=== PATIENT | female | born 1995 | race Caucasian/White ===

== ENCOUNTER → 2017-12-02 | Outpatient (CLI) | payer OTHER ==
[2017-12-02 12:15] LABS: Glucose 3 Hour, Gest 117 mg/dL
== END | disposition home or self-care (01) ==
LOC: LABWHC1 08:15
PROVIDERS: ATTEND Obstetrics & Gynecology
DX: R73.02 Impaired glucose tolerance (oral) (principal)
CPT/HCPCS: 36415; 82951; 82952

== ENCOUNTER 2018-01-01 06:41 | Inpatient (IN) | payer OTHER ==
[2018-01-01] MEDS ORDERED: OXYTOCIN 10 UNIT/ML 1 ML VIAL IM PRN (07:00)
[2018-01-01] MEDS ORDERED: TERBUTALINE 1 MG/ML VIAL SQ PRN (07:00)
[2018-01-01] MEDS ORDERED: LIDOCAINE 1% (PF) 10 MG/ML (30 ML SDV) SQ PRN (07:00)
[2018-01-01] MEDS ORDERED: CARBOPROST TROMETHAMINE 250 MCG/ML 1 ML AMP IM PRN (07:00)
[2018-01-01] MEDS ORDERED: PENICILLIN G POTASSIUM 5,000,000 UNIT in DEXTROSE 5% IN WATER 100 ML IVPB STA ×2 (07:00)
[2018-01-01] MEDS ORDERED: METHYLERGONOVINE 0.2 MG/ML 1 ML AMP IM PRN (07:00)
[2018-01-01] MEDS ORDERED: OXYTOCIN 20 UNITS/1000 ML NS 1,000 ML IV SCH ×2 (07:15→08:30)
[2018-01-01 07:28] LABS: Basophils % (A) 0 %; Eosinophils # (A) 0.1 k/uL (0-0.7); Eosinophils % (A) 1 %; HCT 33.7 % (34.0-46.0); HGB 11.2 gm/dL (11.4-16.0); Lymphocytes # (A) 1.2 k/uL (1.0-4.8); Lymphocytes % (A) 16 %; MCH 29.7 pg (25.0-35.0); MCHC 33.1 g/dL (31.0-37.0); MCV 89.7 fL (80.0-100.0); Mean Platelet Volume 8.4; Monocytes # (A) 0.4 k/uL (0-1.0); Monocytes % (A) 6 %; Neutrophils # (A) 6.1 k/uL (1.3-7.7); Neutrophils % (A) 76 %; Platelet Count 182 k/uL (150-450); RBC 3.76 m/uL (3.80-5.40)
[2018-01-01] MEDS: LACTATED RINGERS 1,000 ML IV SCH ×2 (07:39→21:31)
--- NOTE | 2018-01-01 08:01 | P.HPOB ---
History of Present Illness H&P Date: 01/01/18 Chief Complaint: Contractions This is a 22-year-old 6 para 20 32 woman who presents at approximately 36-6/7 weeks' gestation in spontaneous active labor. She has received her care in [facility]. She reports spontaneous onset of contractions at approximately 11: 30 PM. She presents at approximately 6:30 AM is found to be 6+ centimeters dilated and reginald every 4 minutes. She denies rupture of membranes or vaginal bleeding. She reports an uncomplicated . She believes she is blood type positive and group B strep negative. Her obstetric history is significant for 2 previous vaginal deliveries in 2013 and 2016 at 39 and 35 weeks respectively. She's had one voluntary termination of and 2 miscarriages. Review of Systems All systems: negative Past Medical History Past Medical History: No Reported History History of Any Multi-Drug Resistant Organisms: None Reported Past Surgical History: No Surgical Hx Reported Past Anesthesia/Blood Transfusion Reactions: No Reported Reaction Past Psychological History: No Psychological Hx Reported Smoking Status: Never smoker Past Alcohol Use History: None Reported Past Drug Use History: None Reported - Past Family History Mother Family Medical History: No Reported History Medications and Allergies Home Medications Medication Instructions Recorded Confirmed Type No Known Home Medications 11/17/15 01/01/18 History Allergies Allergy/AdvReac Type Severity Reaction Status Date / Time No Known Allergies Allergy Verified 01/01/18 06:54 Exam Vital Signs Temp Pulse Resp BP 01/01/18 06:54 97.0 F L 75 18 136/75 Intake and Output 12/31/17 01/01/18 01/01/18 22:59 06:59 14:59 Other: Weight 65.771 kg Targeted physical exam is performed. This is a visibly gravid, actively laboring female. Abdomen is nontender with palpable strong contractions. On pelvic examination the cervix is 6-7 cm dilated, 80% effaced and the vertex in the -2 station. Artificial rupture membranes is undertaken and clear fluid is noted. heart tones are reassuring by external monitoring and she is reginald every 3-4 minutes spontaneously. Results Result Diagrams: 01/01/18 07:05 Abnormal Lab Results - Last 24 Hours (Table) 01/01/18 Range/Units 07:05 RBC 3.76 L (3.80-5.40) m/uL Hgb 11.2 L (11.4-16.0) gm/dL Hct 33.7 L (34.0-46.0) % Assessment and Plan (1) Spontaneous onset of labor Current Visit: Yes Status: Acute Code(s): [id number] - SNOMED Code(s): 43778827 (2) 36 to 37 weeks gestation of Current Visit: Yes Status: Acute Code(s): NSI9632 - SNOMED Code(s): 748741225 Plan: 22-year-old 6 para 2032 woman admitted at 36-6/7 weeks gestation in spontaneous active labor. Group B strep unknown and therefore prophylactic antibiotics have been initiated. We'll obtain her record as soon as possible unlikely discontinue these once great group B strep negative status is confirmed. status is currently reassuring and I anticipate normal spontaneous vaginal delivery.
[2018-01-01] MEDS ORDERED: SIMETHICONE 80 MG CHEWABLE PO PRN (08:25)
[2018-01-01] MEDS ORDERED: ZOLPIDEM 5 MG TAB PO PRN (08:25)
[2018-01-01] MEDS ORDERED: HYDROCORTISONE 2.5% RECTAL CREAM 30 GM TUBE RECTAL PRN (08:25)
[2018-01-01] MEDS ORDERED: WITCH HAZEL 1 EACH MED..PAD TOPICAL PRN (08:25)
[2018-01-01] MEDS ORDERED: ACETAMINOPHEN TAB 325 MG TAB PO PRN (08:25)
[2018-01-01] MEDS ORDERED: BENZOCAINE/MENTHOL SPRAY 1 GM/SPRAY AEROSOL TOPICAL PRN (08:25)
[2018-01-01] MEDS ORDERED: diphenhydrAMINE 50 MG CAP PO PRN (08:25)
[2018-01-01] MEDS ORDERED: diphenhydrAMINE 50 MG/ML 1 ML VIAL IVP PRN ×2 (08:25)
[2018-01-01] MEDS ORDERED: LANOLIN CREAM 5 GM TUBE TOPICAL PRN (08:25)
[2018-01-01] MEDS ORDERED: diphenhydrAMINE 25 MG CAP PO PRN (08:25)
--- NOTE | 2018-01-01 08:25 | P.PROBDLV ---
Vaginal Delivery Note - . Vaginal Delivery Note: Findings: Male infant in the vertex left occiput anterior position. Nuchal cord 1. Apgars 8 at 1 minute and 9 at 5 minutes. Weight pending. Intact, three-vessel cord placenta. No perineal lacerations. EBL 100 mL's. Delivery summary: This is a 22-year-old 6 para 203 woman who presented at 36-6/7 weeks gestation having had care at an [facility] facility. Onset of painful contractions at approximately 11:45 PM. She presented approximately 6:30 AM at which time she was 6 cm dilated. She underwent artificial rupture of membranes and received group B strep unknown prophylactic antibiotics. She rapidly progressed to complete cervical dilation. She commenced pushing with excellent maternal effort. With she was repositioned, prepped and draped in the dorsal modified lithotomy position. The head then delivered from the left occiput anterior position. Nose and mouth were bulb suctioned on the perineum. Nuchal cord 1 was reduced. Anterior followed by the posterior shoulders were easily delivered. The rest the infant was delivered onto the field and the nose and mouth were further bulb suctioned. was placed on the maternal abdomen where the cord was clamped and cut. Apgars were 8 at 1 minute and 9 at 5 minutes. An intact, three-vessel cord placenta was delivered without difficulty. The vagina and cervix were inspected and no lacerations were noted. Uterus was massaged and was noted to be firm at the level of the umbilicus. The patient received Pitocin following the delivery of the placenta. Both mother and infant were doing well post delivery in the room.
[2018-01-01] MEDS: IBUPROFEN 600 MG TAB PO PRN ×2 (08:39→20:10)
[2018-01-01 08:52] VITALS: BMI 24.1
[2018-01-01] MEDS: PENICILLIN G POTASSIUM 2,500,000 UNIT in DEXTROSE 5% IN WATER 100 ML IVPB SCH ×6 (12:28→21:33)
[2018-01-01] MEDS: SENNOSIDES-DOCUSATE SODIUM 1 EACH TAB PO SCH (21:35)
[2018-01-02] MEDS: IBUPROFEN 600 MG TAB PO PRN ×3 (01:44→19:58)
[2018-01-02] MEDS: SENNOSIDES-DOCUSATE SODIUM 1 EACH TAB PO SCH ×2 (07:49→19:59)
[2018-01-02 08:52] LABS: Basophils % (A) 0 %; Eosinophils # (A) 0.1 k/uL (0-0.7); Eosinophils % (A) 1 %; HCT 33.4 % (34.0-46.0); HGB 10.9 gm/dL (11.4-16.0); Lymphocytes # (A) 1.2 k/uL (1.0-4.8); Lymphocytes % (A) 16 %; MCH 29.8 pg (25.0-35.0); MCHC 32.7 g/dL (31.0-37.0); MCV 91.1 fL (80.0-100.0); Mean Platelet Volume 8.3; Monocytes # (A) 0.4 k/uL (0-1.0); Monocytes % (A) 6 %; Neutrophils # (A) 5.4 k/uL (1.3-7.7); Neutrophils % (A) 74 %; Platelet Count 169 k/uL (150-450); RBC 3.67 m/uL (3.80-5.40); RDW 14.4 % (11.5-15.5); WBC 7.3 k/uL (3.8-10.6)
--- NOTE | 2018-01-02 12:51 | P.DS ---
Providers Date of admission: 01/01/18 06:58 Expected date of discharge: 01/02/18 Attending physician: Leisa Gutierrez - Discharge Diagnosis(es) (1) Spontaneous onset of labor Current Visit: Yes Status: Acute (2) 36 to 37 weeks gestation of Current Visit: Yes Status: Acute (3) Normal spontaneous vaginal delivery Current Visit: Yes Status: Acute (4) Nuchal cord Current Visit: Yes Status: Acute Hospital Course: This is a 22-year-old 6 now para 3023 woman who presented at 36-6/7 weeks' gestation in advanced active labor. She had her care at an [facility] facility. Following admission she underwent artificial rupture of membranes and clear fluid was noted. She went on to deliver a liveborn male infant over an intact perineum with a nuchal cord. Apgars were 8 at 1 minute and 9 at 5 minutes. Her course was unremarkable. By day #1 she was ambulating and voiding without difficulty, her lochia was decreasing , her pain was controlled with the ibuprofen and her vital signs were stable. She was therefore discharged home with routine instructions for care and follow-up. Procedures: Normal spontaneous vaginal delivery Patient Condition at Discharge: Good Plan - Discharge Summary New Discharge Prescriptions: No Action No Known Home Medications Discharge Medication List No Known Home Medications 11/17/15 [History] Activity/Diet/Wound Care/Special Instructions: Follow-up in the office in 6 weeks . Call with any concerning signs or symptoms including heavy vaginal bleeding, severe abdominal pain, fever greater than 101, swelling or redness of the lower extremities, foul vaginal discharge, or signs of depression. Nothing in the vagina for 6 weeks after delivery, specifically no intercourse. Discharge Disposition: HOME SELF-CARE
[2018-01-03 03:18] VITALS: BP 119/75; PULSE 58; RESP 18; TEMP 97.7
--- NOTE | 2018-01-03 08:33 | P.MSEPDOC ---
Presenting Problems - Arrival Data Date of Arrival on Unit: 01/01/18 Time of Arrival on Unit: 06:55 Mode of Transport: Wheelchair - Complaint OB-Reason for Admission/Chief Complaint: Possible Onset of Labor Comment: 12/31/17 2300 Medical History - Information : 6 Para: 2 Term: 1 : 1 Abortions: Spontaneous or Elective: 0 Number of Living Children: 2 - Gestational Age Gestational Age by JESSE (wks/days): 37 Weeks and 0 Days Review of Systems - Review of Systems Constitutional: No problems Breast: No problems ENT: No problems Cardiovascular: No problems Respiratory: No problems Gastrointestinal: No problems Genitourinary: No problems Musculoskeletal: No problems Neurological: No problems Skin: No problems Vital Signs - Temperature Temperature: 97.7 F Temperature Source: Axillary - Pulse Right Sitting Pulse Rate: 58 Pulse Assessment Method: Pulse Oximetry - Respirations Respiratory Rate: 18 Oxygen Delivery Method: Room Air O2 Sat by Pulse Oximetry: 100 - Blood Pressure Right Arm Blood Pressure: 119/75 Blood Pressure Mean: 89 Blood Pressure Source: Automatic Cuff Medical Screen Scoring (Pre) - Cervical Exam Dilation: 4-7 cm = 2 Effacement: More than 50% = 2 Membranes: Intact - Uterine Contractions Frequency: > or = 36 weeks =2 Duration: > 40 seconds = 2 Intensity: Contraction palpated strong = 1 - Maternal Vital Signs Maternal Temperature: N/A Maternal Blood Pressure: N/A Signs of Preeclampsia: N/A Maternal Respirations: N/A - Pain Assessment Pain Location and Character: Abdomen Pain Scale Used: Numeric (1 - 10) Pain Intensity: 4 Pain Management Goal: 2 Pain Description: *Acute Pain Radiation Location: none Pain Frequency: Intermittent Pain Duration: 7 Pain Duration Units: Hours Pain Behavior: Vocalization Pain Aggravating Factors: None Pharmacological Interventions: Discuss Pain Med Options Non-Pharmacological Interventions: Distraction, Relaxation Technique - Maternal Trauma Maternal Trauma: N/A - Assessment Baseline FHR: 135 Heart Rate - NICHD Category: Category I (Normal) = 0 NST: Reactive Position: N/A Station: N/A - Total Score Total Score (Pre): 9 - Level of Risk Level of Risk: Medium (6-9) Physician Notification (Pre) - Physician Notified Physician Notified Date: 01/01/18 Physician Notified Time: 06:55 Physician/Practitioner Notifed:: Matt New Order Received: Yes Disposition - Disposition OB Disposition: Admit, LDRP Suite I agree with the RN Medical Screening Exam: Yes Risk & Benefit of care provided described in d/c instruction: Yes Diagnosis: 36 WEEKS GESTATION OF
[2018-01-03] MEDS: SENNOSIDES-DOCUSATE SODIUM 1 EACH TAB PO SCH (08:59)
== END 2018-01-03 11:05 | disposition home or self-care (01) | DRG 775 ==
LOC: FBPOP 06:41 → 4FBP 06:58
PROVIDERS: ADMIT Obstetrics & Gynecology; ATTEND Obstetrics & Gynecology
PROC: 10E0XZZ Delivery of Products of Conception, External Approach (ICD-10-PCS; principal; 2018-01-01)
DX: O69.81X0 Labor and delivery complicated by cord around neck, without compression, not applicable or unspecified (principal); Z37.0 Single live birth; Z3A.36 36 weeks gestation of pregnancy
CPT/HCPCS: 85025; 88307; 99213